=== PATIENT | female | born 1935 | race Caucasian/White ===

== ENCOUNTER 2019-12-15 18:07 | Emergency (ER) | payer MEDICARE, SELFPAY ==
--- NOTE | ~2019-12-15 | CT_ITS ---
EXAMINATION: CT soft tissue neck wo con DATE: 12/15/2019 19:56 INDICATION: Right facial swelling. TECHNIQUE: Computed tomography (CT) of the neck was performed without intravenous contrast. Automated exposure control and iterative reconstruction technique were employed. The dose-length product was 4 87.24 mGy-cm. COMPARISON: None FINDINGS: A calcified left lung nodule is consistent with old granulomatous disease. There are dystro phic calcifications at the choroid of the ocular globes. There are likely changes of ocular lens repl acement surgeries. There is a multinodular goiter. There are surgical clips in the right neck and rig ht floor of mouth with flap reconstruction of the right face and neck. There is a thick-walled 3.5 x 3.2 x 4.4 cm cystic mass with 2.9 x 2.1 x 3.0 cm central cystic component involving the right massete r muscle with erosions of the right zygomatic arch and lateral wall of the maxillary sinus. There is aggressive periosteal reaction of the right zygoma. There are chronic changes of resection of a porti on of the right zygomatic arch. There is stranding surrounds the mass. There are surgical clips in ri ght axilla. There is severe cervical spondylosis. IMPRESSION: 1. Thick-walled cystic mass involving the right masseter muscle and adjacent bone suspicious for recu rrence of malignancy. Abscess is less likely. Reviewed, dictated and finalized at location A. IMPRESSION: 1. Thick-walled cystic mass involving the right masseter muscle and adjacent elvia ne suspicious for recurrence of malignancy. Abscess is less likely.
[2019-12-15 18:14] VITALS: BP 159/92; PULSE 84; RESP 16; TEMP 36.9; O2SAT 97
[2019-12-15 19:10] LABS: Basophils Absolute Auto 0.1 K/mm3 (0.0-0.1); Basophils Percent Auto 0.7 % (0.2-1.2); Eosinophils Absolute Auto 0.2 K/mm3 (0-0.3); Eosinophils Percent Auto 2.2 % (0-4.4); Hematocrit 35.5 % (37.0-47.0); Hemoglobin 12.3 g/dL (12.0-15.0); Immature Granulocyte Absolute 0.01 K/mm3 (0.00-0.031); Immature Granulocyte Percent A 0.1 % (0-0.5); Lymphocytes Absolute Auto 1.67 K/mm3 (0.9-3.2); Lymphocytes Percent Auto 22.5 % (18.3-44.2); Mean Corpuscular HGB Conc 34.6 g/dl (32-36); Mean Corpuscular Hemoglobin 34.4 pg (26-34); Mean Corpuscular Volume 99.2 fl (80-100); Mean Platelet Volume 10.6 fl (7.4-10.4); Monocytes Absolute Auto 0.4 K/mm3 (0.1-0.6); Monocytes Percent Auto 5.2 % (2.6-8.5); Neutrophils Absolute Auto 5.2 K/mm3 (1.3-6.7); Neutrophils Percent Auto 69.3 % (45.5-73.1); Platelet Count Result 221 k/mm3 (150-375); Red Blood Count 3.58 M/mm3 (4.2-5.4); Red Cell Distribution Width 13.8 % (11.5-14.5); White Blood Count 7.4 K/mm3 (4.5-10.0)
[2019-12-15 19:18] LABS: INR 1.1; Partial Thromboplastin Time 26.2 SECONDS (22.3-36.8); Prothrombin Time 13.8 Seconds (11.1-14.7)
[2019-12-15 19:20] LABS: Alanine Aminotransferase 28 U/L (4-35); Albumin Level 4.3 g/dL (3.5-5.1); Alkaline Phosphatase 88 U/L (38-126); Aspartate Amino Transferase 47 U/L (14-36); Bilirubin,Total 0.6 mg/dL (0.2-1.3); Blood Urea Nitrogen 39 mg/dL (7-17); Calcium 9.5 mg/dL (8.4-10.2); Carbon Dioxide 22 mmol/L (22-30); Chloride 105 mmol/L (98-107); Estimated CRCL calculation 24 ml/min; Estimated Glomerular Filt Rate 29; Glucose 130 mg/dL (65-105); Potassium 4.2 mmol/L (3.4-5.0); Sodium 137 mmol/L (137-145)
--- NOTE | 2019-12-15 20:15 | ED.SKABFB ---
HPI - Skin/Abscess/Foreign Bdy General Chief complaint: Skin/Abscess/Foreign Body Stated complaint: redness, swelling to face Time Seen by Provider: 12/15/19 18:54 Source: patient and family Mode of arrival: ambulatory Limitations: no limitations History of Present Illness HPI narrative: Pleasant 84-year-old lady She has a history of a previous resection of a cancer, may be a squamous cell cancer, at the [facility] several years ago which required flap reconstructions For about a month she has been having swelling and redness on the right side of her face mostly around the area of the prior surgical field It appears that she has been getting treated with doxycycline for this Her son thinks that the swelling may have somewhat diminished but the redness of the overlying skin might be worse She is not having any troubles swallowing or breathing and not having any fevers MD complaint: lesion and discoloration Onset (ago): week(s) Related Data Home Medications Medication Instructions Recorded Confirmed allopurinol 300 mg DAILY 12/15/19 amlodipine 5 mg DAILY 12/15/19 doxycycline hyclate 12/15/19 furosemide 20 mg EVERY OTHER DAY 12/15/19 ibandronate 150 mg PO [id number] 12/15/19 magnesium oxide 400 mg DAILY 12/15/19 metoprolol tartrate 50 mg BID 12/15/19 solifenacin mg PO 12/15/19 Allergies Allergy/AdvReac Type Severity Reaction Status Date / Time No Known Allergies Allergy Verified 12/15/19 18:20 Review of Systems Review of Systems: All systems reviewed & are unremarkable except as noted in HPI and below Constitutional: Constitutional: Denies chills, Denies fatigue, Denies fever(s) and Denies weakness ENT: Denies dysphagia and Reports sore throat Cardiovascular: Cardiovascular: Denies chest pain Respiratory: Respiratory: Denies cough and Denies dyspnea Gastrointestinal: Gastrointestinal: Denies diarrhea and Denies vomiting PMFSH Surgical History Surgical History (Updated 12/15/19 @ 20:40 by Alec Siddiqui MD) History of neck surgery Exam Const: General: no acute distress and alert Orientation/consciousness: patient oriented x3 HENMT: Other: There is a moderate amount of swelling to the right side of the face which seems to be mostly centered over the right masseter muscle it is not very tender there is erythema of the skin in the area the range of motion of the jaw is good, there is erythema of the skin in the area which is not well demarcated and extends up towards the right side of the forehead and beneath the jaw and there are postoperative scars Eyes: Conjunctivae: conjunctivae normal Pupils: Equal, round and reactive pupils present Neck: Neck: no meningeal signs Resp: Auscultation: clear to auscultation bilaterally Cardio: Rate: regular rate Rhythm: regular rhythm Skin: Other: Erythema right side of face and neck Neuro: General: patient oriented x3 and moves all extremities Course Vital Signs Vital signs: Vital Signs Temperature 36.9 C 12/15/19 18:14 Pulse Rate 84 12/15/19 18:14 Respiratory Rate 16 12/15/19 18:14 Blood Pressure 159/92 H 12/15/19 18:14 Pulse Oximetry 97 12/15/19 18:14 Temperature 36.9 C 12/15/19 18:14 Pulse Rate 84 12/15/19 18:14 Respiratory Rate 16 12/15/19 18:14 Blood Pressure 159/92 H 12/15/19 18:14 Pulse Oximetry 97 12/15/19 18:14 MDM - Skin/Abscess/Foreign Bdy MDM Narrative Medical decision making narrative: Discussed case with ENT at [facility] and they will be able to evaluate her in their clinic promptly and she does not need to be transferred over there tonight Lab Data Result diagrams: 12/15/19 19:01 12/15/19 19:01 Labs: Lab Results 12/15/19 12/15/19 12/15/19 Range/Units 19:01 19:01 19:01 WBC 7.4 (4.5-10.0) K/mm3 RBC 3.58 L (4.2-5.4) M/mm3 Hgb 12.3 (12.0-15.0) g/dL Hct 35.5 L (37.0-47.0) % MCV 99.2 (80-100) fl MCH 34.4 H
[2019-12-15 20:38] VITALS: BP 154/73; PULSE 76; RESP 16; TEMP 36.6; O2SAT 99
[2019-12-15 21:34] VITALS: BP 141/80; PULSE 82; RESP 16; TEMP 36.6; O2SAT 100
== END 2019-12-15 21:35 | disposition home or self-care (01) ==
PROVIDERS: Emergency Medicine; Emergency Provider Emergency Medicine; PCP Internal Medicine
DX: R22.0 Localized swelling, mass and lump, head (principal); Z85.828 Personal history of other malignant neoplasm of skin
CPT/HCPCS: 36415; 70490; 80053; 83605; 85025; 85610; 85730; 87040; 99284

== ENCOUNTER 2020-10-14 12:37 | Emergency (ER) | payer MEDICARE, SELFPAY ==
[2020-10-14] VITALS (36 sets, daily range): BP systolic 114–161; BP diastolic 48–105; PULSE 91–118; RESP 17–29; TEMP 36.9–38.7; O2SAT 92–100
--- NOTE | ~2020-10-14 | CT_ITS ---
EXAMINATION: CT facial bones wo con EXAM DATE: 10/14/2020 14:11 INDICATION: History of squamous cancer, right facial swelling. TECHNIQUE: Spiral CT of the facial bones was acquired in the axial plane without contrast. Coronal reformatted images were also reviewed. The dose-length product (DLP) for this examination was 280.22 mGy-cm. The exposure was tailored according to patient size, and iterative reconstruction (ASIR) wa s used as additional dose reduction technique. Correlation is made to CT neck examination 12/15/2019. FINDINGS: Again there is right cheek cystic mass. It measures about 3.1 x 3.3 cm on this exam, mildly decreased in size compared to 2019. Portions of the wall are thick. On the previous exam there was s till a fat plane between this mass and the skin. Mass is now without any intervening fat plane betwee n it and the skin. There is involvement of the right zygomatic process, anterior and inferior orbital wall demonstrating large amount of periosteal reaction, hyperostosis, but also small erosion. Right master is involved. No evidence of intraorbital extension. Surgical changes in the right submandibula r region. The submandibular and parotid glands are unremarkable. Bilateral cataract surgery. Sinuses are well aerated. IMPRESSION: 1. Mild decrease in size of right cheek, masseter mass with involvement of the right zygoma and infe rior orbital wall. Most likely recurrent malignancy, can't exclude infected fluid. 2. No intraorbital extension. Reviewed, dictated and finalized at location A. IMPRESSION: 1. Mild decrease in size of right cheek, masseter mass with involvement of the right zygoma and inferior orbital wall. Most likely recurrent malignancy, can' t exclude infected fluid. 2. No intraorbital extension.
--- NOTE | ~2020-10-14 | CT_ITS ---
EXAMINATION: CT brain wo con DATE: 10/14/2020 14:11 INDICATION: Altered mental status. History of breast cancer. Right facial squamous cancer. TECHNIQUE: Computed tomography (CT) of the head was performed without intravenous contrast. The mA wa s adjusted according to patient size. Iterative reconstruction technique was employed. Exam dose: 60 5.33 mGy-cm total exam DLP. COMPARISON: None FINDINGS: No intracranial mass lesion or hemorrhage, midline shift or mass effect effect. Prominent bilateral carotid siphon internal carotid artery calcifications. There is nonspecific patchy diminished attenuation of the subcortical and periventricular cerebral wh ite matter, likely due to chronic small vessel ischemic changes. Left thalamic chronic lacunar infarcts. No subdural or epidural hematoma is evident. There is an approximately 3 cm lateral right maxillary facial soft tissue complex mass which may be c onsistent with clinical history of right facial squamous cancer; differential diagnosis includes absc ess. No fracture or bone destruction of the cranial vault. The included mastoid air cells and paranasal si nuses are normally developed and aerated. Bilateral hyperostosis frontalis interna, not likely of any clinical significance. IMPRESSION: 3 cm right lateral maxillary soft tissue complex cystic mass, which may be consistent wi th clinically reported squamous cell cancer or abscess Cerebral atherosclerosis and chronic small vessel ischemic changes of the cerebral white matter Chronic left thalamic lacunar infarcts Reviewed, dictated and finalized at [facility]. Reviewed, dictated and finalized at location A. IMPRESSION: 3 cm right lateral maxillary soft tissue complex cystic mass, whic h may be consistent with clinically reported squamous cell cancer or abscess Cerebral atherosclerosis and chronic small vessel ischemic changes of the cereb ral white matter Chronic left thalamic lacunar infarcts
--- NOTE | ~2020-10-14 | XR_ITS ---
EXAMINATION: XR chest 1V portable EXAM DATE: 10/14/2020 15:54 INDICATION: Fever, transient alteration of awareness. TECHNIQUE: Portable AP frontal chest x-ray was obtained. There is no prior study for comparison. FINDINGS: Right axillary surgical clips. There is aortic arteriosclerosis. Mildly indistinct reticula tion, possible mild edema or interstitial pneumonia. No pneumothorax or pleural effusion. The bones a re osteopenic. There are bony degenerative changes. Right rib fractures posterolaterally which are p robably old. IMPRESSION: Indistinct reticulation, could indicate mild edema or interstitial pneumonia. Reviewed, dictated and finalized at location A.
--- NOTE | 2020-10-14 12:51 | ECG_ITS ---
Measurements Intervals [place] Rate: 115 P: AR: 0 QRS: -6 QRSD: 126 T: 54 QT: 332 QTc: 461 Interpretive Statements SINUS TACHYCARDIA, CONSIDER ATRIAL FLUTTER/TACHYCARDIA RIGHT BUNDLE BRANCH BLOCK BASELINE ARTIFACT- I, II, III, AVR, AVF, V1, V3-V6 ABNORMAL ECG Electronically Signed On 10-14-2020 13:23:34 CDT by Abdoulaye Roche D.O.
[2020-10-14 13:06] LABS: Add Urine Microscopic? YES; Appearance Urine Clear (Clear); Bilirubin Urine Negative (Negative); Blood Urine Negative (Negative); Color Urine Yellow (Yellow); Glucose Urine UA Negative (Negative); Ketones Urine Negative (Negative); Leukocyte Esterase Ur Negative LEU/UL (Negative); Nitrate Urine Negative (Negative); Protein Urine 2+ mg/dL (Negative); RBC Urine 0-2 /hpf (0-2); Specific Grav Ur 1.011 (1.001-1.035); Urobilinogen Urine Negative mg/dL (<2.0); WBC Urine 0-3 /hpf
[2020-10-14] MEDS: LACTATED RINGERS 1,000 ML 999 ML IV CONT ×2 (13:15→15:01)
[2020-10-14] MEDS: ACETAMINOPHEN 500 MG TABLET 1000 MG PO (13:15)
--- NOTE | 2020-10-14 13:28 | ED.AMS ---
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 She receives some sort of immunotherapy treatment every 3 weeks, exactly what is unclear, most recently approximately 10 days ago According to her son, who essentially gives the entire history, about 2 days after that treatment she started feeling badly and may be having some additional swelling in her face At that time she was given a prescription for Bactrim but only took it for possibly 1 or 2 days because of side effects For the last couple of days she is again been worse with greater confusion poor oral intake and fever They were in contact again with [facility] with the suggestion to have a urinalysis done and to start taking the Bactrim again However she has not improved and so was brought to the ER here today Patient is really not able to elaborate on any of this Related Data Home Medications Medication Instructions Recorded Confirmed allopurinol 300 mg DAILY 12/15/19 amlodipine 5 mg DAILY 12/15/19 doxycycline hyclate 12/15/19 furosemide 20 mg EVERY OTHER DAY 12/15/19 ibandronate 150 mg PO [id number] 12/15/19 magnesium oxide 400 mg DAILY 12/15/19 metoprolol tartrate 50 mg BID 12/15/19 solifenacin mg PO 12/15/19 Allergies Allergy/AdvReac Type Severity Reaction Status Date / Time cephalexin Allergy Unknown Verified 10/14/20 12:48 hydrocodone Allergy Unknown Verified 10/14/20 12:48 Review of Systems Review of Systems: ROS unobtainable: Yes unobtainable due to mental status [facility] Surgical History Surgical History (Updated 12/15/19 @ 20:40 by Alec Siddiqui MD) History of neck surgery Exam Const: General: cooperative, no acute distress, confusion and ill appearing Limitations: altered mental status HENMT: Head: normocephalic and atraumatic Ears: external ears normal General nose exam: no epistaxis Other: More or less overlying the right malar eminence is a swollen and fluctuant area probably 2 cm in size, mild erythema mild warmth, the periorbital area is not particularly swollen, there is no drainage Eyes: Conjunctivae: conjunctivae normal EOM: EOMs intact bilaterally Neck: Neck: normal visual inspection, no lymphadenopathy, supple and no JVD Chest: Chest palpation & inspection: abnormal inspection of the chest Other: There is some breakdown of the skin around the site of her previous right mastectomy incision and some bruising on the breast, which does raise some concern for local recurrence Resp: Effort & Inspection: normal respiratory effort and not labored Auscultation: clear to auscultation bilaterally and other (BS =) Cardio: Rate: regular rate and tachycardic Rhythm: regular rhythm Heart sounds: no murmurs GI: GI Palp: Yes Soft to palpation, No Tenderness to palpation present (GI), No Guarding due to palpation present (GI) and No Rebound tenderness present : General: Yes no CVA tenderness Back/Spine/Pelvis: Back: no CVA tenderness Skin: General skin exam: normal color and no rashes or lesions noted Wounds: wounds noted Neuro: General: moves all extremities and no meningeal signs Other: Probably O x1 Extrem: General: normal to inspection and no pedal edema Course Course Emergency Course: She was cultured, fluid bolused, and received vancomycin and Zosyn She remained very hemodynamically stable The facial infection is the only apparent source, and she will need to be evaluated at [facility] for that as aspiration or I&D here would be ill advised Also the appearance of the prior mastectomy scar is problematic and concerning These things were reviewed with her son, he would like
[2020-10-14 13:42] LABS: Basophils Absolute Auto 0.1 K/mm3 (0.0-0.1); Basophils Percent Auto 0.4 % (0.2-1.2); Hematocrit 30.2 % (37.0-47.0); Hemoglobin 9.9 g/dL (12.0-15.0); Immature Granulocyte Absolute 0.07 K/mm3 (0.00-0.031); Immature Granulocyte Percent A 0.5 % (0-0.5); Lymphocytes Percent Auto 2.8 % (18.3-44.2); Mean Corpuscular HGB Conc 32.8 g/dl (32-36); Mean Corpuscular Hemoglobin 32.5 pg (26-34); Monocytes Absolute Auto 0.3 K/mm3 (0.1-0.6); Monocytes Percent Auto 2.2 % (2.6-8.5); Neutrophils Absolute Auto 13.4 K/mm3 (1.3-6.7); Neutrophils Percent Auto 94.1 % (45.5-73.1); Platelet Count Result 206 k/mm3 (150-375); Red Blood Count 3.05 M/mm3 (4.2-5.4); Red Cell Distribution Width 13.8 % (11.5-14.5); White Blood Count 14.3 K/mm3 (4.5-10.0)
[2020-10-14 13:51] LABS: Alanine Aminotransferase 16 U/L (4-35); Albumin Level 3.7 g/dL (3.5-5.1); Alkaline Phosphatase 55 U/L (38-126); Anion Gap 9 mmol/L (8-16); Aspartate Amino Transferase 30 U/L (14-36); Bilirubin,Total 0.4 mg/dL (0.2-1.3); Blood Urea Nitrogen 24 mg/dL (7-17); Calcium 9.3 mg/dL (8.4-10.2); Carbon Dioxide 25 mmol/L (22-30); Chloride 103 mmol/L (98-107); Estimated CRCL calculation 24 ml/min; Estimated Glomerular Filt Rate 31; Glucose 185 mg/dL (65-105); Potassium 4.5 mmol/L (3.4-5.0); Sodium 137 mmol/L (137-145)
[2020-10-14 13:51] LABS: Estimated CRCL calculation 22 ml/min; Estimated Glomerular Filt Rate 27
[2020-10-14 13:53] LABS: Lactic Acid Reflex 3.3 mmol/L (0.7-2.1)
[2020-10-14 16:40] LABS: Reflex Lactic Acid Yes or No Add Lactic
--- NOTE | 2020-10-14 17:13 | PC.NURSE ---
Gave report to Keyla MOTLEY at [facility]
[2020-10-14 17:25] LABS: Lactic Acid Reflex 2.9 mmol/L (0.7-2.1)
--- NOTE | 2020-10-14 18:59 | PC.NURSE ---
called elan hay. eta 1880, called for update at 1837, eta 2129. also called teri 1720 no trucks available, called lynne hay 1848, not able to do transfer, no trucks.
--- NOTE | 2020-10-14 19:40 | PC.NURSE ---
Pt resting on cart alert, vitals stable and in no obvious distress. pt primary language noted to be Lao. Pt repositioned in bed for comfort. Pt noted to be attempting to climb out of bed. Bed alarm placed and staff aware to keep an eye on pt. Call button and personal items within reach. Pt advised to press call button for assistance.
--- NOTE | 2020-10-14 19:44 | PC.NURSE ---
Pt awaiting transport to [facility].
--- NOTE | 2020-10-14 19:57 | PC.NURSE ---
Spoke with son who called into ED and updated on poc. All questions and concerns addressed.
--- NOTE | 2020-10-14 20:45 | PC.NURSE ---
EMS arrived for pt transport to [place].
== END 2020-10-14 20:55 | disposition short-term general hospital (02) ==
PROVIDERS: Emergency Provider Emergency Medicine; PCP Internal Medicine
DX: L76.82 Other postprocedural complications of skin and subcutaneous tissue (principal); L03.211 Cellulitis of face; C44.329 Squamous cell carcinoma of skin of other parts of face; A41.9 Sepsis, unspecified organism; R65.20 Severe sepsis without septic shock; I45.10 Unspecified right bundle-branch block
CPT/HCPCS: 36415; 51701; 70450; 70486; 71045; 80053; 81001; 83605; 85025; 87040; 87077; 87186; 93005; 96361; 96365; 96367; 99285; A9270; J2543; J3370; J7120

== ENCOUNTER 2021-08-14 17:50 | Emergency (ER) | payer OTHER, MEDICARE, SELFPAY ==
--- NOTE | ~2021-08-14 | CT_ITS ---
EXAMINATION: CT brain wo con DATE: 08/14/2021 20:36 INDICATION: Fall. Head injury. Open wound of right cheek. TECHNIQUE: Computed tomography (CT) of the head was performed without intravenous contrast. The mA wa s adjusted according to patient size. Iterative reconstruction technique was employed. Exam dose: 68 1.00 mGy-cm total exam DLP. COMPARISON: 10/14/2020 CT brain FINDINGS: There is prominent patchy diminished attenuation of the subcortical and periventricular cer ebral white matter, likely due to chronic small vessel ischemic changes. Prominent bilateral carotid siphon internal carotid artery calcifications, in addition to some vertebral and basilar artery calci fications.. Chronic left thalamic lacunar infarct. No intracranial mass lesion or hemorrhage, midline shift or mass effect. No subdural or epidural hematoma. There are some posterior scleral calcifications of both orbital globes. These are not situated at the optic nerve. There is prominent apparently ulcerating soft tissue mass of the right facial and periorbital region, invading the right orbit and right maxillary sinus and with bone destruction of the anterolateral wa lls of the right maxillary sinus and lateral right orbital wall There is a history of skin cancer. IMPRESSION: Cerebral atherosclerosis and chronic small vessel ischemic changes of the kelly-white mat ter, chronic left thalamic lacunar infarction Central and cortical cerebral atrophy No acute intracranial finding Large ulcerating soft tissue mass lesion invading the right orbit, right maxillary sinus, with destru ction of the anterior and lateral murray of the right maxillary sinus and lateral wall of the right or bit Reviewed, dictated and finalized at [facility]. Reviewed, dictated and finalized at location A. IMPRESSION: Cerebral atherosclerosis and chronic small vessel ischemic changes of the kelly-white matter, chronic left thalamic lacunar infarction Central and cortical cerebral atrophy No acute intracranial finding Large ulcerating soft tissue mass lesion invading the right orbit, right maxill ainsley sinus, with destruction of the anterior and lateral murray of the right maxi llary sinus and lateral wall of the right orbit
--- NOTE | ~2021-08-14 | CT_ITS ---
EXAMINATION: CT facial bones w con DATE: 08/14/2021 20:39 INDICATION: Fall. Head injury. Swelling of right high. Pre-existing open wound TECHNIQUE: Computed tomography (CT) of the facial bones and maxillofacial region was performed withou t intravenous contrast. Automated exposure control and iterative reconstruction technique were employ ed. Exam dose: 279.37 mGy-cm total exam DLP. COMPARISON: 10/14/2020 CT facial bones FINDINGS: There is considerable progression of a large irregular ulcerating soft tissue mass lesion o f the right masseter, maxillary and periorbital areas. The right zygomatic arch is absent. There is i nterval extensive destruction of the lateral wall the right orbit and invasion of the right orbital f at, with tumor immediately adjacent to the right orbital globe. There is in addition extensive destru ction of the anterior and lateral murray of the right maxillary sinus with soft tissue invasion of the right maxillary sinus. There are multiple surgical clips along the inferior aspect of the angle and body of the right side o f the mandible. IMPRESSION: Prominent interval enlargement and ulceration of a malignant soft tissue mass along the right maxillary, masseter and orbital areas with interval extensive destruction of the anterior later al murray right maxillary sinus, lateral wall of the right orbit, invasion of the right orbit and righ t maxillary sinus Reviewed, dictated and finalized at [facility]. Reviewed, dictated and finalized at location A. IMPRESSION: Prominent interval enlargement and ulceration of a malignant soft tissue mass along the right maxillary, masseter and orbital areas with interval extensive destruction of the anterior lateral murray right maxillary sinus, lat eral wall of the right orbit, invasion of the right orbit and right maxillary s inus
[2021-08-14 17:57] VITALS: BP 154/70; PULSE 112; RESP 12; TEMP 36.6; O2SAT 98
--- NOTE | 2021-08-14 18:06 | ED.GENADULT ---
HPI - General Adult General Chief complaint: Wound/Laceration <FRANKY Cid Last Filed: 08/15/21 03:23> Stated complaint: R eye injury <FRANKY Cid Last Filed: 08/15/21 03:23> Time Seen by Provider: 08/14/21 17:56 <FRANKY Cid Last Filed: 08/15/21 03:23> Source: patient and family <FRANKY Cid Last Filed: 08/15/21 03:23> Mode of arrival: EMS <FRANKY Cid Last Filed: 08/15/21 03:23> Limitations: dementia <FRANKY Cid Last Filed: 08/15/21 03:23> History of Present Illness HPI narrative: Patient is an 85-year-old female who presents to the ED via EMS with report of a fall and head injury. Patient's son at bedside assisted in providing information. 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 She has no longer receiving treatment for this and has been on hospice for the past 8 months. She is currently receiving morphine for comfort care. She currently resides at [facility]. [facility] reports she had an unwitnessed fall today. Staff reported increased swelling around right eye and bleeding from patient's chronic wound thus EMS was called to bring the patient here. Patient somewhat poor historian and unable to tell me how she fell. Denies pain or other complaints currently in the ED bed. <FRANKY Cid Last Filed: 08/15/21 03:23> Related Data Home medications: Home Medications Medication Instructions Recorded Confirmed allopurinol 300 mg DAILY 12/15/19 amlodipine 5 mg DAILY 12/15/19 doxycycline hyclate 12/15/19 furosemide 20 mg EVERY OTHER DAY 12/15/19 ibandronate 150 mg PO [id number] 12/15/19 magnesium oxide 400 mg DAILY 12/15/19 metoprolol tartrate 50 mg BID 12/15/19 solifenacin mg PO 12/15/19 <FRANKY Cid Last Filed: 08/15/21 03:23> Allergies/adverse reactions: Allergies Allergy/AdvReac Type Severity Reaction Status Date / Time cephalexin Allergy Unknown Verified 08/14/21 20:14 hydrocodone Allergy Unknown Verified 08/14/21 20:14 <Kayley Alberts PA-C - Last Filed: 08/15/21 03:23> Review of Systems Review of Systems: EYES: Reports swelling to right eye. SKIN: Reports chronic wound to right facial cheek and right eye. NEUROLOGIC: Reports fall with head injury. <Kayley Alberts PA-C - Last Filed: 08/15/21 03:23> ROS unobtainable: Yes unobtainable due to mental status <Kayley Alberts PA-C - Last Filed: 08/15/21 03:23> COUNTS INCLUDE 234 BEDS AT THE [facility] Past Medical History Medical History: Medical History Mass of soft tissue of face Squamous cell carcinoma <Kayley Alberts PA-C - Last Filed: 08/15/21 03:23> Surgical History Surgical History: Surgical History History of neck surgery <Kayley Alberts PA-C - Last Filed: 08/15/21 03:23> Social History Social History: Social History Smoking status: Never smoker Living arrangements: senior care <Kayley Alberts PA-C - Last Filed: 08/15/21 03:23> Exam Narrative: GENERAL: Chronically ill-appearing, non-toxic, in no acute distress. HEAD: Normocephalic, atraumatic. EYES: PERRL/EOMI of L eye, conjunctivae clear in L eye. Diffuse swelling and erythema to right upper and lower eyelids. Patient unable to open right eyelid. Unable to visualize right eyeball. Large deep erythematous purulent odorous ulcerating chronic wound to right sided face, involving majority of patient's facial cheek, jaw, extending up into her right eye. Packing in place deep inside center of wound. NECK: Supple. No adenopathy. RESPIRATORY: Airway patent, respirations nonlabored. Clear to auscultation bilaterally, no rales, rhonchi, wheezing. CARDIOVASCULAR: Regular rate and rhythm without murmu
[2021-08-14 19:40] LABS: Basophils Percent Auto 0.3 % (0.2-1.2); Eosinophils Percent Auto 0.3 % (0-4.4); Hematocrit 26.7 % (37.0-47.0); Hemoglobin 7.9 g/dL (12.0-15.0); Immature Granulocyte Absolute 0.15 K/mm3 (0.00-0.031); Immature Granulocyte Percent A 1.4 % (0-0.5); Lymphocytes Absolute Auto 0.87 K/mm3 (0.9-3.2); Mean Corpuscular HGB Conc 29.6 g/dl (32-36); Mean Corpuscular Hemoglobin 26.9 pg (26-34); Mean Corpuscular Volume 90.8 fl (80-100); Mean Platelet Volume 8.4 fl (7.4-10.4); Monocytes Absolute Auto 0.4 K/mm3 (0.1-0.6); Monocytes Percent Auto 3.4 % (2.6-8.5); Neutrophils Absolute Auto 9.5 K/mm3 (1.3-6.7); Neutrophils Percent Auto 86.6 % (45.5-73.1); Platelet Count Result 397 k/mm3 (150-375); Red Blood Count 2.94 M/mm3 (4.2-5.4); Red Cell Distribution Width 15.6 % (11.5-14.5); White Blood Count 10.9 K/mm3 (4.5-10.0)
[2021-08-14 19:56] LABS: Hypochromasia 1+ (NORMAL); Ovalocytes 1+ (NORMAL); Platelet Estimate Increased (Adequate)
[2021-08-14 20:09] LABS: Alanine Aminotransferase 18 U/L (4-35); Albumin Level 3.9 g/dL (3.5-5.1); Alkaline Phosphatase 92 U/L (38-126); Anion Gap 9 mmol/L (8-16); Aspartate Amino Transferase 43 U/L (14-36); Bilirubin,Total 0.4 mg/dL (0.2-1.3); Blood Urea Nitrogen 42 mg/dL (7-17); Calcium 9.6 mg/dL (8.4-10.2); Carbon Dioxide 29 mmol/L (22-30); Chloride 104 mmol/L (98-107); Estimated Glomerular Filt Rate 43; Glucose 128 mg/dL (65-110); Potassium 4.3 mmol/L (3.4-5.0); Sodium 142 mmol/L (137-145)
--- NOTE | 2021-08-14 20:18 | PC.NURSE ---
Babs Spoke to nurse at [facility] and confirmed patient's night time morphine dose. Patient takes Morphine Sulfate (20 mg/mL liquid) 10 mg TID. 2004 Khadra with [facility] called to check on the patient. Updated her on the patient's condition. She also confirmed the patient's night time morphine dose. Asked to be called when patient leaves the hospital. [phone]
[2021-08-14] MEDS: MORPHINE SULFATE ORAL CONC SOL (*CRX) 10 MG/0.5 ML SYRINGE PO (20:40)
--- NOTE | 2021-08-14 22:03 | PC.NURSE ---
Report called to Khadra hospice nurse. Updated on patient's labwork, CT scans, and medications given.
== END 2021-08-14 22:01 | disposition hospice, home (50) ==
PROVIDERS: Physician Assistant; Emergency Provider Emergency Medicine
DX: S09.90XA Unspecified injury of head, initial encounter (principal); C44.329 Squamous cell carcinoma of skin of other parts of face; I70.0 Atherosclerosis of aorta; W19.XXXA Unspecified fall, initial encounter
CPT/HCPCS: 36415; 70450; 70487; 80053; 85025; 99284; A9270; Q9967